=== PATIENT | male | born 1945 | race Caucasian/White ===

== ENCOUNTER → 2018-11-01 15:38 | Outpatient (CLI) | payer MEDICARE, SELFPAY ==
--- NOTE | 2018-11-01 15:41 | DI.RAD.S_ITS ---
PROCEDURE: XR FOOT RT MIN 3V INDICATIONS: Right foot pain TECHNIQUE: Right views of the foot were acquired. COMPARISON: None. FINDINGS: Bones: No displaced fractures or dislocations. No suspicious bony lesions. Small plantar and Achilles spurs are present. There are mild to moderate degenerative changes involving the joints of the great toe. Soft tissues: No tibiotalar joint effusion. Achilles tendon appears normal. IMPRESSION: No acute osseous abnormality of the right foot. Dictated by: Brenton Donaldson M.D. on 11/01/2018 at 15:19 Approved by: Brenton Donaldson M.D. on 11/01/2018 at 15:20
== END ==
PROVIDERS: Visit Provider Physician Assistant
DX: M79.671 Pain in right foot (principal)
CPT/HCPCS: 73630

== ENCOUNTER → 2021-07-02 11:21 | Outpatient (CLI) | payer MEDICARE, SELFPAY ==
--- NOTE | 2021-07-02 11:23 | DI.RAD.S_ITS ---
PROCEDURE: XR CHEST 2V INDICATIONS: Cough TECHNIQUE: 2 views of the chest were acquired. COMPARISON: None. FINDINGS: Surgical changes and devices: None. Lungs and pleura: Lungs are clear. No pleural effusions or pneumothorax. Mediastinum: Mediastinal contours are normal. Heart size is normal. Bones and chest wall: No suspicious bony abnormalities. Soft tissues appear unremarkable. IMPRESSION: No acute cardiopulmonary process demonstrated radiographically. Dictated by: Jordan Acosta M.D. on 07/02/2021 at 11:43 Approved by: Jordan Acosta M.D. on 07/02/2021 at 11:43
== END ==
PROVIDERS: PCP Internal Medicine; Referring Provider Internal Medicine; Visit Provider Internal Medicine
DX: R05.9 Cough, unspecified (principal)
CPT/HCPCS: 71046

== ENCOUNTER → 2022-06-02 15:47 | Outpatient (CLI) | payer MEDICARE, SELFPAY ==
--- NOTE | 2022-06-02 15:50 | DI.RAD.S_ITS ---
PROCEDURE: XR CHEST 2V INDICATIONS: cough TECHNIQUE: 2 views of the chest were acquired. COMPARISON: [facility], CR, XR CHEST 2V, 07/02/2021, 11:18. FINDINGS: Surgical changes and devices: None. Lungs and pleura: Minimal nonspecific opacity at the right lung base on the frontal view without definite correlate identified on the lateral view. No pleural effusions or pneumothorax. Mediastinum: Mediastinal contours are normal. Heart size is normal. Bones and chest wall: No suspicious bony abnormalities. Soft tissues appear unremarkable. IMPRESSION: Minimal right basilar opacity is present, nonspecific, may represent atelectasis but aspiration or pneumonia are difficult to fully exclude. Dictated by: Germán Richardson M.D. on 06/02/2022 at 16:16 Approved by: Germán Richardson M.D. on 06/02/2022 at 16:19
== END ==
PROVIDERS: PCP Internal Medicine; Referring Provider Internal Medicine; Visit Provider Internal Medicine
DX: R05.9 Cough, unspecified (principal)
CPT/HCPCS: 71046